=== PATIENT | female | born 1970 | race Caucasian/White ===

== ENCOUNTER → 2016-08-31 | Outpatient (CLI) | payer BC, OTHER ==
--- NOTE | 2016-08-31 23:57 | MA ---
Digital Bilateral Mammograms with Tomosynthesis History: Routine screening. Technique: Standard digital cephalocaudal and tomosynthesis oblique views, with computer-aided detec tion (iCAD). Findings: Comparisons: 2009. Breast density B. There are no masses, no suspicious calcifications, an d no secondary signs of malignancy. Impression: Negative. BI-RADS category 1. Recommendation: Bilateral screening mammograms in one year. Negative mammography should not preclude additional workup of any clinically suspicious area. [facility] will send a letter of results to the patient. The patient's information is entered into a reminder system with a target due date for her next mammogram.
== END ==
LOC: FIMAGING 15:50
DX: Z12.31 Encounter for screening mammogram for malignant neoplasm of breast (principal)
CPT/HCPCS: G0202

== ENCOUNTER → 2017-10-25 | Outpatient (CLI) | payer OTHER | LOC: FIMAGING 08:27 | PROVIDERS: ATTEND Obstetrics & Gynecology Gynecology | DX: Z12.31 Encounter for screening mammogram for malignant neoplasm of breast (principal) ==